=== PATIENT | female | born 1945 | race Caucasian/White ===

== ENCOUNTER 2021-04-23 19:09 | Inpatient (IN) | payer SELFPAY ==
[~2021-04-23] VITALS: Ht 152.4 cm; Wt 62.6 kg
[2021-04-23] MEDS ORDERED: LABETALOL 5MG/ML SYR 20 MG/4 ML SYRINGE IV ONE ×2 (19:30→22:00)
[2021-04-23] MEDS ORDERED: ONDANSETRON HCL 4MG/2ML INJ IV ONE (19:45)
[2021-04-23 20:24] LABS: BASOPHILS % 0.7 % (0.0-2.0); EOSINOPHILS % 1.6 % (0.0-5.0); HEMATOCRIT. 42.5 % (36.0-48.0); HEMOGLOBIN. 13.8 g/dL (12.0-16.0); MEAN CORPUSCULAR HEMOGLOBIN 28.8 pg (28.0-32.0); MEAN PLATELET VOLUME 8.2 fl (7.4-10.4); MONOCYTES % 4.7 % (2.0-8.0); PLATELET 343 x1000/uL (130-400); RED BLOOD CELL COUNT 4.77 mill/uL (4.2-5.4); RED CELL DISTRIBUTION WIDTH 13.5 % (11.6-14.6)
[2021-04-23 20:32] LABS: CHLORIDE 107 mEq/L (98-107)
[2021-04-23 20:34] LABS: PROTHROMBIN TIME 10.6 sec (9.6-11.0)
[2021-04-23 20:35] LABS: CLARITY URINE CLEAR (CLEAR); COLOR URINE YELLOW (YELLOW); KETONES URINE TRACE (NEGATIVE); LEUKOCYTE ESTERASE URINE 1+ (NEGATIVE); NITRITE URINE NEGATIVE (NEGATIVE); OCCULT BLOOD URINE NEGATIVE (NEGATIVE); PROTEIN URINE 1+ (NEGATIVE); SPECIFIC GRAVITY URINE 1.007 (1.005-1.030); UROBILINOGEN URINE 0.2 E.U./dL (0.2-1.0)
[2021-04-23] MEDS ORDERED: CEFTRIAXONE 1 G PREMIX 50 ML IV ONE (21:30)
[2021-04-23] MEDS ORDERED: SODIUM CHLORIDE 0.9% 250 ML IV ONE (21:30)
[2021-04-24] MEDS ORDERED: GUAIFENESIN 200MG/10ML SUGAR FREE UDC PO PRN (04:45)
[2021-04-24] MEDS ORDERED: ONDANSETRON HCL 4MG/2ML INJ IV PRN (04:45)
[2021-04-24] MEDS ORDERED: DOCUSATE SODIUM 100MG CAPSULE PO PRN (04:45)
[2021-04-24] MEDS ORDERED: MAGNESIUM/ALUMINUM HYDROXIDE/SIMETHICONE 30ML UDC PO PRN (04:45)
[2021-04-24] MEDS ORDERED: ACETAMINOPHEN 325MG TABLET PO PRN (04:45)
[2021-04-24] MEDS ORDERED: HYDROCODONE/ACETAMINOPHEN 5/325MG TABLET PO PRN (04:45)
[2021-04-24] MEDS ORDERED: SODIUM CHLORIDE 0.45% 1,000 ML IV SCH (04:45)
[2021-04-24] MEDS: CLONIDINE 0.1MG TABLET PO PRN ×2 (05:22→14:58)
[2021-04-24] MEDS ORDERED: ENOXAPARIN 40MG/0.4ML SYR SUBCUT SCH (09:00)
[2021-04-24] MEDS ORDERED: AMLODIPINE 10MG TABLET PO SCH (09:00)
[2021-04-24] MEDS ORDERED: LISINOPRIL 10MG TABLET PO SCH (09:00)
[2021-04-24 09:09] VITALS: BP 168/86
[2021-04-24 10:08] VITALS: BP 156/103
[2021-04-24] MEDS ORDERED: NALOXONE HCL 0.4MG/ML VIAL IV PRN (12:00)
[2021-04-24 12:08] VITALS: BP 138/78
[2021-04-24 12:51] VITALS: BP 117/82
[2021-04-24 13:08] VITALS: BP 143/83
[2021-04-24 13:09] VITALS: BP 143/83
[2021-04-25] MEDS ORDERED: LISINOPRIL 40MG TABLET PO SCH (09:00)
== END 2021-04-24 18:20 | disposition home or self-care (01) | DRG 199 ==
LOC: ER 19:09 → MICUSO 23:45 → EDBEDREQ 23:50 → EDBEDREQTM 23:50 → 5EST 04-24 07:37
PROVIDERS: ADMIT Hospitalist; ATTEND Hospitalist
DX: I16.0 Hypertensive urgency (principal); E11.9 Type 2 diabetes mellitus without complications; I10 Essential (primary) hypertension; R51.9 Headache, unspecified; Z82.49 Family history of ischemic heart disease and other diseases of the circulatory system
CPT/HCPCS: 36415; 71045; 80053; 81003; 82962; 83880; 84484; 85025; 93005; 93970; 99291; J0696; J1650; J2405; J3490; J7050

== ENCOUNTER 2021-05-23 21:03 | Emergency (ER) | payer MEDICAID ==
[~2021-05-23] VITALS: Ht 152.4 cm; Wt 73.0 kg
[2021-05-23 23:20] LABS: CHLORIDE 112 mEq/L (98-107)
[2021-05-23 23:21] LABS: BASOPHILS % 0.3 % (0.0-2.0); HEMATOCRIT. 41.5 % (36.0-48.0); HEMOGLOBIN. 13.6 g/dL (12.0-16.0); LYMPHOCYTES % 16.2 % (20.0-50.0); MEAN CORPUSCULAR HEMOGLOBIN 28.6 pg (28.0-32.0); MEAN CORPUSCULAR VOLUME 87.5 fL (81.0-99.0); MEAN PLATELET VOLUME 7.5 fl (7.4-10.4); MONOCYTES % 6.2 % (2.0-8.0); NEUTROPHILS % 76.3 % (40.0-76.0); PLATELET 334 x1000/uL (130-400); RED BLOOD CELL COUNT 4.75 mill/uL (4.2-5.4); RED CELL DISTRIBUTION WIDTH 13.9 % (11.6-14.6)
[2021-05-24 00:40] LABS: CLARITY URINE CLEAR (CLEAR); COLOR URINE YELLOW (YELLOW); KETONES URINE NEGATIVE (NEGATIVE); LEUKOCYTE ESTERASE URINE 2+ (NEGATIVE); NITRITE URINE NEGATIVE (NEGATIVE); OCCULT BLOOD URINE NEGATIVE (NEGATIVE); PH URINE 7.5 (4.5-8.0); PROTEIN URINE NEGATIVE (NEGATIVE); SPECIFIC GRAVITY URINE 1.007 (1.005-1.030); UROBILINOGEN URINE 0.2 E.U./dL (0.2-1.0)
[2021-05-24 04:00] VITALS: BP 148/80
[2021-05-24] MEDS ORDERED: IOHEXOL-300 100 ML BOTTLE ONE (04:39)
== END 2021-05-24 04:10 | disposition home or self-care (01) ==
LOC: ER 21:03
DX: I10 Essential (primary) hypertension (principal); R10.32 Left lower quadrant pain; E11.9 Type 2 diabetes mellitus without complications
CPT/HCPCS: 36415; 71045; 74177; 80053; 81003; 82962; 83690; 84484; 85025; 93005; 99285; Q9967